=== PATIENT | female | born 1955 | race Caucasian/White ===

== ENCOUNTER → 2016-11-06 | Outpatient (CLI) | payer OTHER ==
[2016-11-06 08:57] LABS: CH 30.2; CHCM 32.3; HCT 36.8 % (34.0-46.0); HDW 3.24; HGB 11.8 gm/dL (11.4-16.0); Hypochromasia Slight; MCH 30.1 pg (25.0-35.0); Mean Platelet Volume 8.7; RBC 3.92 m/uL (3.80-5.40); RDW 15.2 % (11.5-15.5); WBC 2.6 k/uL (3.8-10.6)
== END | disposition home or self-care (01) ==
LOC: LABWHC1 08:27
PROVIDERS: ATTEND Dentist Oral and Maxillofacial Surgery
DX: D69.3 Immune thrombocytopenic purpura (principal)
CPT/HCPCS: 36415; 85027